=== PATIENT | male | born 1970 | race Two or more races ===

== ENCOUNTER 2023-02-18 06:42 | Emergency (ER) | payer OTHER ==
[2023-02-18 06:49] VITALS: RESP 18; BMI 25.8
[2023-02-18 08:22] LABS: PH,URINE 5.5 (5.0-8.0); URINE APPEARANCE CLEAR; URINE BILIRUBIN NEGATIVE (NEGATIVE); URINE COLOR YELLOW; URINE GLUCOSE (UA) NEGATIVE (NEGATIVE); URINE KETONE NEGATIVE (NEGATIVE); URINE LEUK ESTERASE NEGATIVE (NEGATIVE); URINE NITRITE NEGATIVE (NEGATIVE); URINE PROTEIN NEGATIVE (NEGATIVE); URINE UROBILINOGEN 0.2 mg/dL (0.2-1.0)
[2023-02-18 11:09] LABS: BASO % 0.5 % (0-2.0); EOS % 0.8 % (0-4.5); HEMATOCRIT 42.5 % (35.4-49); HEMOGLOBIN 14.4 GM/dL (11.7-16.9); LYMPH % 35.7 % (8-40); MCH 30.1 pg (25.7-33.7); MCHC 33.9 g/dl (32.0-35.9); MEAN CELL VOLUME 88.7 fl (80-96); MEAN PLT VOLUME 9.9 fl (7.5-11.1); PLATELET COUNT 228 10^3/uL (134-434); RBC 4.79 M/mm3 (4.00-5.60); RDW 15.2 % (11.9-15.9); WHITE BLOOD COUNT 4.4 K/mm3 (4.0-10.0)
[2023-02-18 11:24] LABS: POTASSIUM 5.2 mmol/L (3.5-5.1)
[2023-02-18 11:26] LABS: ALBUMIN 4.1 g/dl (3.4-5.0); BLOOD UREA NITROGEN 11.5 mg/dL (7-18); CALCIUM 9.3 mg/dL (8.5-10.1)
[2023-02-18 11:31] LABS: BILIRUBIN,TOTAL 1.2 mg/dL (0.2-1); TOT PROT 8.1 g/dl (6.4-8.2)
[2023-02-18 13:23] VITALS: BP 131/88; PULSE 61; TEMP 98.1
== END 2023-02-18 13:23 | disposition home or self-care (01) ==
LOC: JER 06:42
DX: R30.0 Dysuria (principal); K76.89 Other specified diseases of liver; N32.89 Other specified disorders of bladder; N50.819 Testicular pain, unspecified; R35.0 Frequency of micturition; R39.11 Hesitancy of micturition
CPT/HCPCS: 36415; 74176-TC; 76870-TC; 80053; 81003; 85025; 87086; 99285-25